=== PATIENT | female | born 1970 | race Caucasian/White ===

== ENCOUNTER 2021-03-16 06:23 | Inpatient (IN) | payer MEDICARE ==
[2021-03-14 10:02] LABS: BASOPHILS % 0.3 % (0.0-1.0); EOSINOPHILS # (AUTO) 0.1 (0.0-0.4); EOSINOPHILS % 1.7 % (0.0-6.0); HEMATOCRIT 45.5 % (34.2-44.1); HEMOGLOBIN 14.8 g/dL (12.0-16.0); LYMPHOCYTES # (AUTO) 2.9 (1.0-3.2); LYMPHOCYTES % 41.9 % (18.0-39.1); MEAN CORPUSCULAR HEMOGLOBIN 29.4 pg (28-32); MEAN CORPUSCULAR HGB CONC 32.5 g/dL (31-35); MEAN CORPUSCULAR VOLUME 90.5 fL (81-99); MONOCYTES # (AUTO) 0.6 (0.2-0.8); MONOCYTES % 8.3 % (4.4-11.3); NEUTROPHILS # (AUTO) 3.3 (2.1-6.9); NEUTROPHILS % 47.4 % (38.7-80.0); PLATELET COUNT 178 x10e3/uL (140-360); RED BLOOD COUNT 5.03 x10e6/uL (3.6-5.1); RED CELL DISTRIBUTION WIDTH 13.2 % (11.7-14.4)
[2021-03-14 11:03] LABS: ANION GAP 17.1 mmol/L (8-16); CALCIUM 9.2 mg/dL (8.4-10.2); CREATININE, SERUM 0.7 mg/dL (0.57-1.11); POTASSIUM 4.1 mmol/L (3.5-5.1)
[~2021-03-16] VITALS: Ht 162.6 cm; Wt 142.4 kg
[~2021-03-16 06:23] MED LIST: ABILIFY20 MG PO; CLARITIN-D 241 EACH PO; CYMBALTA20 MG PO; DEPAKOTE ER500 MG PO; FOLIC ACID0.4 MG PO; FUROSEMIDE40 MG PO; GABAPENTIN400 MG PO; LEXAPRO10 MG PO; MINIPRESS2 MG PO; MYRBETRIQ50 MG PO; PANTOPRAZOLE SO40 MG PO; REMERON30 MG PO; SODIUM CHLORIDE 0.9% 50ML 100 ML ONE; TRAZODONE HCL300 MG PO; VITAMIN B-1100 M1 PO
[2021-03-16] MEDS ORDERED: BUPIVACAINE 0.25% 30ML SDV ONE (06:40)
[2021-03-16] MEDS ORDERED: ONDANSETRON HCL INJ 2MG/ML 2ML 2 MG/ML VIAL ONE ×2 (07:31→12:12)
[2021-03-16] MEDS ORDERED: METOCLOPRAMIDE HCL 10 MG/2ML VIAL ONE (07:31)
[2021-03-16] MEDS ORDERED: ACETAMINOPHEN 1000 MG/100 ML 100 ML IV ONE (07:42)
[2021-03-16] MEDS ORDERED: IBUPROFEN 800MG/ 200ML 200 ML IV ONE (08:02)
[2021-03-16] MEDS ORDERED: SUGAMMADEX SODIUM 200 MG/2 ML VIAL IV ONE (09:01)
[2021-03-16] MEDS ORDERED: Morphine 2mg Syringe 2 MG/ML SYR IV PRN (10:00)
[2021-03-16] MEDS ORDERED: ONDANSETRON HCL INJ 2MG/ML 2ML 2 MG/ML VIAL IV PRN (10:00)
[2021-03-16] MEDS ORDERED: HYDROCODONE/APAP 7.5MG-325MG 1 EA TAB PO PRN (10:00)
[2021-03-16 11:03] VITALS: BP 130/53
[2021-03-16 11:04] VITALS: BP 130/53
[2021-03-16] MEDS ORDERED: LACTATED RINGER'S 1,000 ML INJ ONE (11:30)
[2021-03-16 11:39] VITALS: BP 130/53
[2021-03-16] MEDS ORDERED: PROPOFOL IV EMULSION 10 MG/ML 20 ML VIAL ONE (12:12)
[2021-03-16] MEDS ORDERED: DEXAMETHASONE SOD PHOS INJ 4 MG/ML SDV ONE (12:12)
[2021-03-16] MEDS ORDERED: ROCURONIUM BROMIDE 10 MG/ML 5ML VIAL IV ONE (12:12)
[2021-03-16] MEDS ORDERED: SEVOFLURANE INHAL SOLN 250 ML PEN BTL ONE (12:12)
[2021-03-16] MEDS ORDERED: LIDOCAINE HCL 2% LOCAL INJ 5 ML SDV VIAL INJ ONE (12:12)
[2021-03-16] MEDS ORDERED: POVIDONE IODINE 0.05% 0.05 % ML PO ONE (12:12)
[2021-03-16] MEDS ORDERED: Morphine 10mg syringe 10 MG/ML INJ ONE (12:25)
[2021-03-16] MEDS ORDERED: MIDAZOLAM HCL 2 MG/2 ML VIAL ONE (12:25)
[2021-03-16] MEDS ORDERED: KETAMINE HCL INJ 50 MG/ML 10 ML VIAL ONE (12:25)
[2021-03-16] MEDS ORDERED: FENTANYL CITRATE/PF 100MCG/2 ML INJ ONE (12:25)
[2021-03-16] MEDS ORDERED: GABAPENTIN 400 MG CAP PO SCH (15:00)
[2021-03-16 15:12] VITALS: BP 149/76
[2021-03-16 15:31] VITALS: BP 149/76
[2021-03-16] MEDS ORDERED: ENOXAPARIN SOD INJ 40 MG/0.4 ML SYR SC SCH (20:00)
[2021-03-16] MEDS ORDERED: PRAZOSIN HCL 1 MG CAP PO SCH (21:00)
[2021-03-16] MEDS ORDERED: MIRTAZAPINE 15 MG TAB PO SCH (21:00)
[2021-03-16] MEDS ORDERED: DEPAKOTE ER 500MG TAB(ONCE DAILY) PO SCH (21:00)
[2021-03-16] MEDS ORDERED: TRAZODONE HCL 50 MG TAB PO SCH (21:00)
[2021-03-16] MEDS ORDERED: DEPAKOTE DELAYED-RELEASE TAB 500 MG PO SCH (21:00)
[2021-03-17] MEDS ORDERED: DULOXETINE HCL 20 MG DELAYED RELEASE PO SCH (09:00)
[2021-03-17] MEDS ORDERED: ARIPIPRAZOLE 20 MG TAB PO SCH (09:00)
[2021-03-17] MEDS ORDERED: FUROSEMIDE 20 MG TAB PO SCH (09:00)
[2021-03-17] MEDS ORDERED: LORATADINE/PSEUDOEPHEDRINE 24 HR SR TAB PO SCH (09:00)
[2021-03-17] MEDS ORDERED: PANTOPRAZOLE SOD 40 MG TABEC PO SCH (09:00)
[2021-03-17] MEDS ORDERED: ESCITALOPRAM OXALATE 10 MG TAB PO SCH (09:00)
== END 2021-03-16 17:18 | disposition home or self-care (01) | DRG 621 ==
LOC: OR 06:23 → PACU V 09:45 → MED/SURG 10:31
PROVIDERS: ADMIT Internal Medicine; ATTEND Internal Medicine
PROC: 0D164ZA Bypass Stomach to Jejunum, Percutaneous Endoscopic Approach (ICD-10-PCS; principal; 2021-03-16 07:00)
DX: E66.01 Morbid (severe) obesity due to excess calories (principal); Z68.43 Body mass index [BMI] 50.0-59.9, adult; K21.9 Gastro-esophageal reflux disease without esophagitis; Z87.891 Personal history of nicotine dependence; N32.81 Overactive bladder; F32.A Depression, unspecified; Z20.822 Contact with and (suspected) exposure to COVID-19
CPT/HCPCS: 36415; 71046; 80048; 85025; 93005; 94799; J0690; J1100; J2001; J2250; J2270; J2405; J2765; J3010; J7121; U0002